=== PATIENT | male | born 1965 | race Caucasian/White ===

== ENCOUNTER → 2020-12-02 | Outpatient (REF) | LOC: M LABSMTC 11:14 | PROVIDERS: ATTEND Pediatrics | DX: Z11.52 Encounter for screening for COVID-19 (principal) ==

== ENCOUNTER 2020-12-13 12:31 | Observation (INO) | payer BC ==
[~2020-12-13] VITALS: Ht 193 cm; Wt 98.2 kg
[2020-12-13] MEDS ORDERED: VERA240C PO (12:45)
[2020-12-13] MEDS ORDERED: PROP150T PO (12:45)
[2020-12-13] MEDS ORDERED: BUPR150T12 PO (12:45)
[2020-12-13] MEDS ORDERED: BUPR300T92 PO (12:45)
[2020-12-13] MEDS ORDERED: POTA10CA32 PO (12:45)
[2020-12-13] MEDS ORDERED: QUET100T2 PO (12:45)
[2020-12-13] MEDS ORDERED: ECOT81TA5 PO (12:47)
[2020-12-13] MEDS ORDERED: OXYC7.5T3 PO (13:00)
[2020-12-13] MEDS ORDERED: MORPHINE 4 MG/ML 1ML VIAL/SYRINGE (J2270) IV ONE (13:10)
[2020-12-13] MEDS ORDERED: ONDANSETRON 4MG/2ML VIAL IV ONE ×2 (13:10→16:55)
[2020-12-13] MEDS ORDERED: NS 1,000 ML IV ONE (13:10)
[2020-12-13 13:37] LABS: BASO % 0.5 % (0.0-1.0); EOS # 0.2 10^3/uL (0.0-0.5); HEMATOCRIT 48.5 % (42.0-52.0); HEMOGLOBIN 16.1 g/dl (13.5-17.5); LYMPH # 1.2 10^3/uL (1.5-5.0); LYMPH % 15.3 % (24.0-44.0); MEAN CORPUSCULAR HEMOGLOBIN 29.8 pg (27.0-33.0); MEAN CORPUSCULAR HGB CONC 33.2 g/dl (32.0-36.5); MEAN CORPUSCULAR VOLUME 89.8 fl (80.0-96.0); MONO # 0.5 10^3/uL (0.0-0.8); MONO % 6.4 % (2.0-8.0); NEUTROPHILS # 5.9 10^3/uL (1.5-8.5); NEUTROPHILS % 74.4 % (36.0-66.0); PLATELET COUNT, AUTOMATED 215 10^3/uL (150-450)
--- OUTSIDE RECORDS SUMMARY | 2020-12-13 13:55 | CCD ---
Author Author [facility] Organization [facility] Address Unknown Phone Unavailable Support Name Relationship Address Phone KAYLA BUSTAMANTE Next Of Kin [address] [place] [address] [employer] Next Of Kin [address] [place] [address] Re-disclosure Warning The records that you are about to access may contain information from federally-assisted alcohol or drug abuse programs. If such information is present, then the following federally mandated warning applies: This information has been disclosed to you from records protected by federal confidentiality rules (42 CFR part 2). The federal rules prohibit you from making any further disclosure of this information unless further disclosure is expressly permitted by the written consent of the person to whom it pertains or as otherwise permitted by 42 CFR part 2. A general authorization for the release of medical or other information is NOT sufficient for this purpose. The Federal rules restrict any use of the information to criminally investigate or prosecute any alcohol or drug abuse patient.The records that you are about to access may contain highly sensitive health information, the redisclosure of which is protected by Article 27-F of the [facility] Public Health law. If you continue you may have access to information: Regarding HIV / AIDS; Provided by facilities licensed or operated by the [facility] Office of Mental Health; or Provided by the [facility] Office for People With Developmental Disabilities. If such information is present, then the following [facility] mandated warning applies: This information has been disclosed to you from confidential records which are protected by state law. State law prohibits you from making any further disclosure of this information without the specific written consent of the person to whom it pertains, or as otherwise permitted by law. Any unauthorized further disclosure in violation of state law may result in a fine or custodial sentence or both. A general authorization for the release of medical or other information is NOT sufficient authorization for further disc losure. Medications Medication Brand Name Start Date Product Form Dose Route Admi nistrative Instructions Pharmacy Instructions Status Indications Reaction Description Data Source(s) Potassium Chloride 10 MEQ Extended Release Oral Capsule POTA SSIUM CHLORIDE 12/05/2020 12:00:00 AM EDT capsule, extended release 90 TAKE ONE CAPSULE BY MOUTH THREE TIMES A DAY TAKE ONE CAPSULE BY MOUTH THREE TIMES A DAY SOLD: 12/05/2020 [facility] quetiapine 100 MG Oral Tablet QUETIAPINE FUMARATE 10/20/2020 12: 00:00 AM EDT tablet 120 TAKE ONE TO TWO TABLETS BY MOUTH AT BEDTIME TAKE ONE TO TWO TABLETS BY MOUTH AT BEDTIME SOLD: 10/20/2020 [facility] quetiapine 100 MG Oral Tablet QUETIAPINE FUMARATE 10/15/2020 12: 00:00 AM EDT tablet 10 TAKE ONE TO TWO TABLETS BY MOUTH AT BEDTIME TAKE ONE TO TWO TABLETS BY MOUTH AT BEDTIME SOLD: 10/15/2020 [facility] 24 HR Bupropion Hydrochloride 300 MG Extended Release Oral T ablet BUPROPION HCL 09/25/2020 12:00:00 AM EDT tablet extended release 24 hr 90 TAKE ONE TABLET BY MOUTH EVERY DAY TAKE ONE TABLET BY MOUTH EVERY DAY SOLD: 09/25/2020 [facility] 24 HR Bupropion Hydrochloride 150 MG Extended Release Oral T ablet BUPROPION HCL 09/25/2020 12:00:00 AM EDT tablet extended release 24 hr 90 TAKE ONE TABLET BY MOUTH EVERY DAY DIRECTED TAKE ONE TABLET BY MOUTH EVERY DAY DIRECTED SOLD: 09/25/2020 [facility] 240 mg 09/17/2020 12:00:00 AM EDT capsule,ext rel. pellet s 24 hr 30 TAKE ONE CAPSULE BY MOUTH EVERY DAY TAKE ONE CAPSULE BY MOUTH EVERY DAY SOLD: 09/18/2020 [facility] 240 mg 09/17/2020 12:00:00 AM EDT capsule,ext rel. pellet s 24 hr 30 TAKE ONE CAPSULE BY MOUTH EVERY DAY TAKE ONE CAPSULE BY MOUTH EVERY DAY SOLD: 11/21/2020 [facility] 150 mg 09/17/2020 12:00:00 AM EDT tablet 90 TAKE ONE TABLET BY MOUTH THREE TIMES A DAY TAKE ONE TABLET BY MOUTH THREE TIMES A DAY SOLD: 09/18/2020 [facility] 240 mg 09/17/2020 12:00:00 AM EDT capsule,ext rel. pellet s 24 hr 30 TAKE ONE CAPSULE BY MOUTH EVERY DAY TAKE ONE CAPSULE BY MOUTH EVERY DAY SOLD: 10/20/2020 [facility] 240 mg 08/12/2020 12:00:00 AM EDT tablet extended release 30 TAKE ONE TABLET BY MOUTH EVERY DAY TAKE ONE TABLET BY MOUTH EVERY DAY SOLD: 08/14/2020 [facility] quetiapine 100 MG Oral Tablet QUETIAPINE FUMARATE 08/11/2020 12: 00:00 AM EDT tablet 120 TAKE 1-2 TABLETS BY MOUTH AT BED TIME TAKE 1-2 TABLETS BY MOUTH AT BEDTIME SOLD: 08/11/2020 [facility] Insurance Providers Payer name Policy type / Coverage type Policy ID Covered alliance party ID Covered alliance party's relationship to lyles Policy Lyles Plan Information [employer] PPO [id number] SP [id number] Problems, Conditions, and Diagnoses No Information Surgeries/Procedures No Information Results ID Date Data Source [id number] 12/02/2020 09:50:00 AM EDT [facility] Name Value Range Interpretation Code Description Data Lacy rce(s) Supporting Document(s) SARS coronavirus 2 RNA [Presence] in Res piratory specimen by JORGE LUIS with probe detection NEGATIVE [facility] This lab was ordered by [facility] a nd reported by [facility]. Procedure Social History No Information
[2020-12-13 14:05] LABS: ALBUMIN 3.9 GM/DL (3.2-5.2); ALT/SGPT 38 U/L (12-78); BILIRUBIN,DIRECT 0.1 MG/DL (0.0-0.2); BILIRUBIN,TOTAL 0.4 MG/DL (0.2-1.0); BLOOD UREA NITROGEN 19 MG/DL (7-18); CALCIUM LEVEL 9.4 MG/DL (8.5-10.1); CARBON DIOXIDE LEVEL 31 MEQ/L (21-32); CHLORIDE LEVEL 106 MEQ/L (98-107); CREATININE FOR GFR 1.24 MG/DL (0.70-1.30); GLOMERULAR FILTRATION RATE > 60.0 (>56); GLUCOSE, FASTING 97 MG/DL (70-100); LIPASE 99 U/L (73-393); POTASSIUM SERUM 4.7 MEQ/L (3.5-5.1); SODIUM LEVEL 142 MEQ/L (136-145); TOTAL PROTEIN 7.2 GM/DL (6.4-8.2)
[2020-12-13] MEDS: HYDROMORPHONE HCL 0.5 MG/ 0.5 ML SYRINGE (J1170 PER 1) IV PRN ×2 (14:34→16:01)
--- NOTE | 2020-12-13 14:35 | REP ---
INDICATION: RLQ/bladder pain hx kidney stones. COMPARISON: None. TECHNIQUE: Renal stone protocol with coronal and sagittal reconstructions provided. FINDINGS: CT abdomen: The lung bases show minor dependent atelectatic change posterior lower lung zones and some curvilinear atelectasis lateral basal segment of the right lower lobe. No effusion or infiltrate. No pulmonary nodules. Heart not enlarged there is no pericardial thickening or effusion. The there is no hiatal hernia. Stomach is mildly distended with the small amount of fluid there are pill fragments in the gastric antrum and in the fundus. The liver, spleen, gallbladder, pancreas and adrenal glands are normal. The aorta has no evidence for aneurysm or dissection. There is a retroaortic left renal vein noted as an anatomic variant. No periaortic, other retroperitoneal or mesenteric pathologic sized lymphadenopathy seen. Scattered stool and gas in the colon without signs of colitis or diverticulitis. No stricture or mass. Small bowel loops unremarkable. Lung window review of all CT slices in the abdomen and pelvis shows no perforation or free air. No abdominal ascites. Kidneys show bilateral stones up to 8 mm in pyramids and the left kidney larger than right. Mild hydronephrosis with the extrarenal pelvis on the left side. A 7 0.6 mm stone in the UPJ on the left side. I do not see any other definite stones in the collecting system or left ureter which has normal caliber and course. The right side shows no hydronephrosis. There was no right hydronephrosis, extrarenal pelvis or hydroureter. The right ureter shows normal course to the bladder without stone. There is some mild perinephric stranding, left greater than right. The bone windows show degenerative disc changes throughout the lumbar spine, greatest at L1-2 with prominent anterior and smaller posterior osteophytes. There are also posterior osteophytes at L2-3 through L4-5 and all levels show disc space narrowing, sparing the L5-S1 level. No compression fractures. There is no spondylolysis or spondylolisthesis but there is facet arthritis evident. Lower thoracic spine with lesser degenerative changes and no destructive lesions. The visualized ribs are intact. CT pelvis: Sacrum, pelvis and hips show minor degenerative change without fracture or focal lesion. Distal ureters intact bladder shows no mass, wall thickening or stone. Distal left colon sigmoid shows some scattered diverticula without signs of diverticulitis or colitis. Rectum unremarkable no ventral or inguinal hernia nor pathologic sized inguinal adenopathy. There are few pericecal nodes but no cecal/pericecal inflammatory changes. No inguinal or ventral hernia is in the pelvis no inguinal or pelvic adenopathy. Calcifications in the prostate noted which is mildly enlarged. IMPRESSION: 1. Nephrolithiasis with calcifications predominantly in pyramids on both sides. There is a 7.6 mm stone in the left UPJ with extrarenal pelvis and mild hydronephrosis on the left side. Remainder of the left ureter without dilatation or stone. None of the left renal stones are in the collecting system. 2. No right hydronephrosis, extrarenal pelvis, hydroureter, renal/ureteral or bladder stone on this study. 3. Degenerative changes in the spine. 4. No inflammatory changes of the colon or small bowel loops. Cecum without wall thickening edema or Sandra cecal infiltration of fat. <Electronically signed by Ruel Kingston > 12/13/20 [id number]
[2020-12-13] MEDS ORDERED: HYDROMORPHONE HCL 0.5 MG/ 0.5 ML SYRINGE (J1170 PER 1) IV PRN ×3 (17:20→18:15)
[2020-12-13] MEDS ORDERED: MORPHINE 4 MG/ML 1ML VIAL/SYRINGE (J2270) IV PRN (17:20)
--- NOTE | 2020-12-13 17:20 | HPEPDOC ---
[facility] Medical History & Physical Date of Admission Dec 13, 2020 Date of Service: Dec 13, 2020 Attending Physician: Dominique Cooper MD History and Physical CHIEF COMPLAINT: Suprapubic pain HISTORY OF PRESENT ILLNESS: Patient is a 55-year-old male with PMH of nephrolithiasis status post lithotripsy, atrial fibrillation, chronic back pain, depression who presents to [facility] emergency room with the chief complaint of increased superpubic pain since 12/12/2020. Patient describes the pain as a dull/aching in character, 10/10 earlier today, constant, nonradiating and similar to pain his experience in the past when he has had kidney stones. The patient has associated nausea with lethargy. He denies vomiting, chest pain, shortness of breath, recent illnesses, dysuria. Due to the pain not improving he decided to come to the ER to be further evaluated. In the emergency room, his vital signs were stable. CT of the abdomen and pelvis showed 7.6 m stone in the left UPJ with extrarenal pelvis and mild hydronephrosis on the left side. There was also nephrolithiasis with calcifications predominantly impairment on both side. The patient was given 4 mg of morphine which did not help his pain. He was then given 1 mg of Dilaudid which helped decrease the pain level to 3/10. He was given 2 doses of 4 mg Zofran which did not help nausea. Urology on-call Dr. 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 The patient did not want to undergo stenting and wanted to try to control pain only for now to see how that would work. The hospital currently does not have a lithotripsy machine which is what, ideally, he would want used as intervention. Apparently the hospital only has one every 2 weeks on . Decision made between both urologists was also to not consult urology at this time. The patient was ultimately admitted under medicine service with the diagnosis of left ureterolithiasis, uncontrolled pain. REVIEW OF SYSTEMS: CONSTITUTIONAL: Denies unexplained weight gain or weight loss, fever, night sweats EYES: Denies eye drainage, eye pain, visual changes, dry/irritated eye EARS, NOSE, MOUTH, THROAT: Denies difficulty hearing, ringing in ears, mouth sores, loose teeth, sore throat, facial numbness or pain NECK: Denies swollen glands CARDIOVASCULAR: Denies irregular heartbeat, racing heart, chest pains, swelling of feet or legs, pain in legs with walking RESPIRATORY: Denies night sweats, wheezing, sputum production, oxygen at home, coughing up blood, cough lasting > 1 month GASTROINTESTINAL: Denies constipation, bloody stool, diarrhea, heartburn GENITOURINARY: Denies painful urination, bloody urine, frequent urination, urgency, leaking urine, impotence MUSCULOSKELETAL: Denies joint pain, muscle pain, leg swelling INTEGUMENTARY: Denies rash, itching, new skin lesion, change in existing skin lesion, hair loss or increase, breast changes. NEUROLOGICAL: Denies headaches, dizziness, difficulty walking, numbness or tingling PSYCHIATRIC: Denies depression, anxiety, recurrent bad thoughts, mood swings, hallucinations PAST MEDICAL HISTORY: Hx of nephrolithiasis status post lithotripsy Atrial fibrillation Chronic back pain Depression PAST SURGICAL HISTORY: Ureteroscopy Lithotripsy Appendectomy Bilateral inguinal hernia repair Umbilical hernia repair Laminectomy, discectomy 2006 FAMILY HISTORY: Motheratrial fibrillation. Alive SOCIAL HISTORY: Denies smoking history. Drinks alcohol socially. Denies drug use. Currently employed as a urologist. Primary care provider is not local and is in [place]. ALLERGIES: Please see below. HOME MEDICATIONS: Please see below. PHYSICAL EXAMINATION: VS: Stable on room air CONSTITUTIONAL: Appears in mild distress, AAO x 3 EYES: PERRLA, EOM intact HENT, MOUTH: Normocephalic, atraumatic, moist mucous membranes NECK: SUPPLE, no JVD, no lymphadenopathy, no carotid bruit CV: Regular rate and rhythm, S1S2 normal, no murmurs/rubs/gallops RESPIRATORY: Clear to auscultation bilaterally, no rales/rhonchi/wheezes GI: Suprapubic, umbilical pain on palpation of abdomen. BS positive in 4 quadrants, soft, nondistended, + guarding, no organomegaly : Deferred MUSCULOSKELETAL: Normal ROM. No cyanosis, clubbing, swelling, joint deformity, extremity edema INTEGUMENTARY: Intact, no rashes, no lesions, no erythema NEUROLOGIC: Cranial Nerves II-XII are intact, no focal deficits PSYCHIATRIC: Mood and affect are normal LABORATORY DATA: Please see below IMAGING: CT abdomen and pelvis: 1. Nephrolithiasis with calcifications predominantly in pyramids on both sides. There is a 7.6 mm stone in the left UPJ with extrarenal pelvis and mild hydronephrosis on the left side. Remainder of the left ureter without dilatation or stone. None of the left renal stones are in the collecting system. 2. No right hydronephrosis, extrarenal pelvis, hydroureter, renal/ureteral or bladder stone on this study. 3. Degenerative changes in the spine. 4. No inflammatory changes of the colon or small bowel loops. Cecum without wall thickening edema or Sandra cecal infiltration of fat. ASSESSMENT: 55-year-old male with PMH of nephrolithiasis status post lithotripsy, atrial fibrillation, chronic back pain, depression admitted under medicine service with the diagnosis of left ureterolithiasis, uncontrolled pain. PLAN: Left ureterolithiasis with mild hydronephrosis -CT above: 7.6 mm stone in the left UPJ with extrarenal pelvis and mild hydronephrosis on the left side -Patient opted not for stenting -Discussed the case with Dr. Kumari who also spoke directly with patient who is himself a urologist. Plan is currently pain management. If worsens during admission or does not improve then may require intervention. Patient also did not wish to have urology consult currently. -C/w IVFs, pain control with IV morphine and dilaudid, cont pulse ox, tele, zofran and phenergan for n/v (not controlled alone with zofran) -If worsens, consult urology officially. Atrial fibrillation -Controlled -Resume home meds Depression -Stable -C/w home medications Chronic hypokalemia -C/w home supplement Chronic back pain -Stable -on pain meds above GI px -PPI IV DVT px -Heparin sc DISPOSITION: Admitted under observation status. Consider urology consult if worsens. Plan is d/c home when medically improved. Vital Signs Vital Signs Date Time Temp Pulse Resp B/P (MAP) Pulse Ox O2 Delivery O2 Flow Rate FiO2 12/13/20 17:09 78 97 12/13/20 16:19 97.2 18 138/71 (93) Room Air Laboratory Data Labs 24H Laboratory Tests 2 12/13/20 13:07: Immature Granulocyte % (Auto) 0.4, Neutrophils (%) (Auto) 74.4H, Lymphocytes (%) (Auto) 15.3L, Monocytes (%) (Auto) 6.4, Eosinophils (%) (Auto) 3.0, Basophils (%) (Auto) 0.5, Neutrophils # (Auto) 5.9, Lymphocytes # (Auto) 1.2L, Monocytes # (Auto) 0.5, Eosinophils # (Auto) 0.2, Basophils # (Auto) 0.0, Nucleated Red Blood Cells % (auto) 0.0, Anion Gap 5L, Glomerular Filtration Rate > 60.0, Calcium Level 9.4, Total Bilirubin 0.4, Direct Bilirubin 0.1, Aspartate Amino Transf (AST/SGOT) 25, Alanine Aminotransferase (ALT/SGPT) 38, Alkaline Phosphatase 101, Total Protein 7.2, Albumin 3.9, Albumin/Globulin Ratio 1.2, Lipase 99 12/13/20 15:50: Urine Color YELLOW, Urine Appearance CLEAR, Urine pH 6.0, Urine Specific Burt 1.010, Urine Protein NEGATIVE, Urine Glucose (UA) NEGATIVE, Urine Ketones TRACEH, Urine Blood 1+H, Urine Nitrite NEGATIVE, Urine Bilirubin NEGATIVE, Urine Urobilinogen 0.2, Urine Leukocyte Esterase NEGATIVE, Urine WBC (Auto) 1, Urine RBC (Auto) 4H, Urine Hyaline Casts (Auto) 0, Urine Bacteria (Auto) NEGATIVE, Urine Squamous Epithelial Cells 0, Urine Mucus (Auto) SMALL, Urine Sperm (Auto) 12/13/20 16:43: CBC/BMP Laboratory Tests 12/13/20 13:07 Home Medications Scheduled Aspirin (Ecotrin) 81 Mg Tablet.dr, 81 MG PO DAILY for pain Bupropion Hcl (Bupropion Xl) 150 Mg Tab.er.24h, PO DAILY Potassium Chloride (Potassium Chloride) 10 Meq Capsule.er, DAILY Quetiapine Fumarate (Quetiapine Fumarate) 100 Mg Tablet, PO QHS Verapamil HCl (Verapamil ER) 240 Mg Cap24h.pel, PO DAILY Scheduled PRN Oxycodone HCl/Acetaminophen (Oxycodon-Acetaminophen 7.5-325) 1 Each Tablet, 1 TAB PO QIDP PRN for pain Miscellaneous Medications Bupropion HCl (Bupropion Xl) 300 Mg Tab.er.24h Propafenone HCl (Propafenone HCl) 150 Mg Tablet Allergies Coded Allergies: No Known Allergies (Unverified , 12/13/20) A-FIB/CHADSVASC A-FIB History Current/History of A-Fib/PAF?: Yes Current PO Anticoag Therapy: Yes Age/Risk Factor Scoring CHADSVASC: CHADSVASC Response (Comments) Value Age Risk Factor Age < 65 years old 0 Gender Risk Factor Male 0 Hx of CHF No 0 Hx of HTN No 0 Hx of Stroke/TIA/or VTE No 0 Hx of Diabetes No 0 Hx of Vascular Disease No 0 Total 0 Treatment Treatment ordered: Other Other anticoagulant ordered: heparin Dominique Cooper MD Dec 13, 2020 17:19
[2020-12-13] MEDS ORDERED: PROMETHAZINE INJ 25 MG/ML VIAL (J2550) IV PRN (17:35)
[2020-12-13] MEDS ORDERED: ONDANSETRON 4MG/2ML VIAL IV PRN (17:35)
[2020-12-13 17:41] LABS: RSV AMPLIFICATION NEGATIVE (NEGATIVE)
--- OUTSIDE RECORDS SUMMARY | 2020-12-13 17:49 | CCD ---
Author Author [facility] Organization [facility] Address Unknown Phone Unavailable Support Name Relationship Address Phone KAYLA BUSTAMANTE Next Of Kin [address] [place] [address] [employer] Next Of Kin [address] [place] [address] Re-disclosure Warning The records that you are [...] is protected by Article 27-F of the [facility] Public Health law. If you continue you may have access to information: Regarding HIV / AIDS; Provided by facilities licensed or operated by the [facility] Office of Mental Health; or Provided by the [facility] Office for People With Developmental Disabilities. If such information is present, then the following [facility] mandated warning applies: This information [...] law may result in a fine or penitentiary sentence or both. A general authorization for [...] type / Coverage type Policy ID Covered libertarian ID Covered libertarian's relationship to lyles Policy Lyles Plan Information [employer] PPO 306 [id number] SP [id number] Problems, Conditions, and Diagnoses No Information Surgeries/Procedures No Information Results ID Date Data Source [id number] 12/02/2020 09:50:00 AM EDT [facility] Name Value Range Interpretation Code Description Data Lacy rce(s) Supporting Document(s) SARS coronavirus 2 RNA [Presence] in Res piratory specimen by JORGE LUIS with probe detection NEGATIVE [facility] This lab was ordered by [facility] a nd reported by [facility]. Procedure Social History No Information
[2020-12-13] MEDS ORDERED: HOME MED LIST COMPLETE! XX SCH (18:15)
[2020-12-13 18:30] VITALS: BP 138/88
[2020-12-13] MEDS: NS 1,000 ML IV SCH ×2 (18:34→20:13)
[2020-12-13] MEDS: PANTOPRAZOLE 40MG VIAL (C9113 PER 1) IV SCH (18:34)
[2020-12-13] MEDS ORDERED: PROPAFENONE 150 MG TAB PO PRN (18:45)
[2020-12-13 19:06] VITALS: O2SAT 91
[2020-12-13 20:11] LABS: INR 0.98; PROTHROMBIN TIME 13.4 SECONDS (12.7-14.5)
[2020-12-13 20:12] LABS: PARTIAL THROMBOPLASTIN TIME 27.8 SECONDS (25.9-37.0)
[2020-12-13] MEDS: HEPARIN SOD (PORCINE) 5000UNITS/ML 1ML VIAL/SYRINGE SQ SCH (20:13)
[2020-12-13] MEDS: POTASSIUM CHLORIDE 10MEQ SR TABLET PO SCH (20:13)
[2020-12-13] MEDS ORDERED: QUEtiapine FUMARATE 100 MG TAB PO SCH (21:00)
[2020-12-13 22:00] VITALS: BP 127/79
[2020-12-14 06:00] VITALS: BP 125/77
[2020-12-14 06:08] LABS: HEMATOCRIT 40.9 % (42.0-52.0); MEAN CORPUSCULAR HEMOGLOBIN 29.6 pg (27.0-33.0); MEAN CORPUSCULAR HGB CONC 32.5 g/dl (32.0-36.5); MEAN CORPUSCULAR VOLUME 91.1 fl (80.0-96.0); PLATELET COUNT, AUTOMATED 171 10^3/uL (150-450); RED BLOOD COUNT 4.49 10^6/uL (4.30-6.10); WHITE BLOOD COUNT 6.4 10^3/uL (4.0-10.0)
[2020-12-14 06:20] LABS: BLOOD UREA NITROGEN 17 MG/DL (7-18); CARBON DIOXIDE LEVEL 28 MEQ/L (21-32); CHLORIDE LEVEL 111 MEQ/L (98-107); CREATININE FOR GFR 1.24 MG/DL (0.70-1.30); GLOMERULAR FILTRATION RATE > 60.0 (>56); GLUCOSE, FASTING 89 MG/DL (70-100); POTASSIUM SERUM 4.1 MEQ/L (3.5-5.1); SODIUM LEVEL 142 MEQ/L (136-145)
[2020-12-14 06:26] LABS: HEMOGLOBIN 13.3 g/dl (13.5-17.5)
[2020-12-14] MEDS ORDERED: buPROPion **XL** TABLET 150MG (WELLBUTRIN XL) PO SCH ×2 (09:00)
[2020-12-14] MEDS: HEPARIN SOD (PORCINE) 5000UNITS/ML 1ML VIAL/SYRINGE SQ SCH (09:00)
[2020-12-14] MEDS ORDERED: VERAPAMIL 120 MG SR TAB PO SCH (09:00)
[2020-12-14] MEDS: PANTOPRAZOLE 40MG VIAL (C9113 PER 1) IV SCH (09:00)
[2020-12-14] MEDS ORDERED: ASPIRIN 81MG ENTERIC TABLET PO SCH (09:00)
[2020-12-14 09:53] VITALS: O2SAT 95
[2020-12-14] MEDS: POTASSIUM CHLORIDE 10MEQ SR TABLET PO SCH (09:53)
[2020-12-14 09:55] VITALS: BP 121/78
[2020-12-14] MEDS ORDERED: HYDR-3713 PO (10:39)
--- NOTE | 2020-12-14 20:06 | DS.PDOC ---
Discharge Summary General Date of Admission Dec 13, 2020 at 12:32 Date of Discharge 12/14/20 Attending Physician: Dominique Cooper MD Discharge Summary PROCEDURES PERFORMED DURING STAY: None ADMITTING DIAGNOSES: Left ureterolithiasis with mild hydronephrosis Atrial fibrillation Depression Chronic hypokalemia Chronic back pain DISCHARGE DIAGNOSES: Left ureterolithiasis with mild hydronephrosis Atrial fibrillation Depression Chronic hypokalemia Chronic back pain COMPLICATIONS/CHIEF COMPLAINT: Ureterolithiasis. HISTORY OF PRESENT ILLNESS: Patient is a 55-year-old male with PMH of nephrolithiasis status post lithotripsy, atrial fibrillation, chronic back pain, depression who presents to [facility] emergency room with the chief complaint of increased superpubic pain s marco a 12/12/2020. Patient describes the pain as a dull/aching in character, 10/10 earlier today, constant, nonradiating and similar to pain his experience in the past when he has had kidney stones. The patient has associated nausea with lethargy. He denies vomiting, chest pain, shortness of breath, recent illnesses, dysuria. Due to the pain not improving he decided to come to the ER to be further evaluated. HOSPITAL COURSE: In the emergency room, his vital signs were stable. CT of the abdomen and pelvis showed 7.6 m stone in the left UPJ with extrarenal pelvis and mild hydronephrosis on the left side. There was also nephrolithiasis with calcifications predominantly impairment on both side. The patient was given 4 mg of morphine which did not help his pain. He was then given 1 mg of Dilaudid which helped decrease the pain level to 3/10. He was given 2 doses of 4 mg Zofran which did not help nausea. Urology on-call Dr. 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 The patient did not want to undergo stenting and wanted to try to control pain only for now to see how that would work. The hospital currently does not have a lithotripsy machine which is what, ideally, he would want used as intervention. Apparently the hospital only has one every 2 weeks on . Decision made between both urologists was also to not consult urology at this time. The patient was ultimately admitted under medicine service with the diagnosis of left uret erolithiasis, uncontrolled pain. While admitted, the following issues were addressed or monitored: Left ureterolithiasis with mild hydronephrosis -CT above: 7.6 mm stone in the left UPJ with extrarenal pelvis and mild hydronephrosis on the left side -Patient opted not for stenting -Discussed the case with Dr. Kumari who also spoke directly with patient who is himself a urologist. Plan was pain management and he required morphine, dilaudid inpatient. -Did not require much overnight -By AM pain much improved -D/lexy home with additional pain med, encouragement to hydrate and f/u with uro logy. Atrial fibrillation -Controlled -c/w home meds Depression -Stable -C/w home medications Chronic hypokalemia -C/w home supplement Chronic back pain -Stable -C/w home meds DISCHARGE MEDICATIONS: Please see below. ALLERGIES: Please see below. PHYSICAL EXAMINATION: VS: Stable on room air CONSTITUTIONAL: NAD, AAO x 3 EYES: PERRLA, EOM intact HENT, MOUTH: Normocephalic, atraumatic, moist mucous membranes NECK: SUPPLE, no JVD, no lymphadenopathy, no carotid bruit CV: Regular rate and rhythm, S1S2 normal, no murmurs/rubs/gallops RESPIRATORY: Clear to auscultation bilaterally, no rales/rhonchi/wheezes GI: nontender. BS positive in 4 quadrants, soft, nondistended, no guarding, no organomegaly : Deferred MUSCULOSKELETAL: Normal ROM. No cyanosis, clubbing, swelling, joint deformity, extremity edema INTEGUMENTARY: Intact, no rashes, no lesions, no erythema NEUROLOGIC: Cranial Nerves II-XII are intact, no focal deficits PSYCHIATRIC: Mood and affect are normal LABORATORY DATA: Please see below. IMAGING: CT abdomen and pelvis: 1. Nephrolithiasis with calcifications predominantly in pyramids on both sides. There is a 7.6 mm stone in the left UPJ with extrarenal pelvis and mild hydronephrosis on the left side. Remainder of the left ureter without dilatation or stone. None of the left renal stones are in the collecting system. 2. No right hydronephrosis, extrarenal pelvis, hydroureter, renal/ureteral or bladder stone on this study. 3. Degenerative changes in the spine. 4. No inflammatory changes of the colon or small bowel loops. Cecum without wall thickening edema or Sandra cecal infiltration of fat. PROGNOSIS: Good ACTIVITY: As tolerated DIET: Regular DISPOSITION: 01 Home, Self-Care. DISCHARGE INSTRUCTIONS: 1. Please follow up with urology as oupatient within the next 1 week after discharge. 2. If you should have any increased suprapubic pain, flank pain, difficulty urinating please see a medical professional. ITEMS TO FOLLOWUP ON ON OUTPATIENT: None DISCHARGE CONDITION: Stable TIME SPENT ON DISCHARGE: 35 minutes. Vital Signs/I&Os Vital Signs Date Time Temp Pulse Resp B/P (MAP) Pulse Ox O2 Delivery O2 Flow Rate FiO2 12/14/20 09:55 79 121/78 12/14/20 09:53 95 Room Air 12/14/20 06:00 97.7 17 12/13/20 19:16 2.0 I&O- Last 24 Hours up to 6 AM 12/14/20 06:00 Intake Total 1730 ml Output Total 700 ml Balance 1030 ml Laboratory Data Labs 24H Laboratory Tests 2 12/14/20 05:40: Nucleated Red Blood Cells % (auto) 0.0, Anion Gap 3L, Glomerular Filtration Rate > 60.0, Calcium Level 8.0L CBC/BMP Laboratory Tests 12/14/20 05:40 Discharge Medications Scheduled Aspirin (Ecotrin) 81 Mg Tablet.dr, 81 MG PO DAILY, (Reported) Bupropion HCl (Bupropion Xl) 300 Mg Tab.er.24h, 300 MG PO DAILY, (Reported) WITH 150MG. TOTAL OF 450 MG Bupropion Hcl (Bupropion Xl) 150 Mg Tab.er.24h, 150 MG PO DAILY, (Reported) WITH 300MG TOTAL OF 450MG Potassium Chloride (Potassium Chloride) 10 Meq Capsule.er, 10 MEQ PO TID, (Reported) Quetiapine Fumarate (Quetiapine Fumarate) 100 Mg Tablet, 100 MG PO QHS, (Reported) Verapamil HCl (Verapamil ER) 240 Mg Cap24h.pel, 240 MG PO DAILY, (Reported) Scheduled PRN Hydrocodone/Acetaminophen (Hydrocodone-Acetamin 5-325 mg) 1 Each Tablet, 1 TAB PO Q6HP PRN for PAIN MDD 4 Propafenone HCl (Propafenone HCl) 150 Mg Tablet, 150 MG PO TID PRN for A-FIB, (Reported) Allergies Coded Allergies: No Known Allergies (Unverified , 12/13/20) Dominique Cooper MD Dec 14, 2020 20:06
== END 2020-12-14 11:36 | disposition home or self-care (01) ==
LOC: M ED 12:31 → M ED INP 12:32 → ENRESERV 17:57 → M MSPAV 18:25
PROVIDERS: ADMIT Internal Medicine; ATTEND Internal Medicine
DX: N13.5 Crossing vessel and stricture of ureter without hydronephrosis (principal); I48.91 Unspecified atrial fibrillation; F32.9 Major depressive disorder, single episode, unspecified; E87.6 Hypokalemia; G89.29 Other chronic pain; Z79.82 Long term (current) use of aspirin; Z79.899 Other long term (current) drug therapy
CPT/HCPCS: 36415; 74176; 80048; 80076; 81001; 83690; 85025; 85027; 85610; 85730; 87631; 93041; 96361; 96374; 96375; 96376; 99285; C9113; J1170; J1644; J2270; J2405

== ENCOUNTER → 2020-12-23 | Outpatient (CLI) | payer BC ==
[~2020-12-23] MED LIST: BUPR150T12 PO; BUPR300T92 PO; ECOT81TA5 PO; HYDR-3713 PO; OXYB5TAB10 PO; OXYC7.5T3 PO; POTA10CA32 PO; PROP150T PO; PYRI1TAB5 PO; QUET100T2 PO; VERA240C PO
== END ==
LOC: M LABSMTC 11:24
PROVIDERS: ATTEND Anesthesiology
DX: Z01.812 Encounter for preprocedural laboratory examination (principal); Z20.822 Contact with and (suspected) exposure to COVID-19

== ENCOUNTER 2020-12-24 08:01 | Day surgery (SDC) | payer BC ==
[~2020-12-24] VITALS: Ht 193 cm; Wt 104.3 kg
[~2020-12-24 08:01] MED LIST changes: +LR 1,000 ML IV ONE; -OXYB5TAB10 PO; -PYRI1TAB5 PO; +ceFAZolin SOD 2 GM in IV 1 EA IV ONE
[2020-12-24] MEDS ORDERED: CONRAY-60 60% 50ML VIAL (Q9961) As Ordered ONE (09:09)
[2020-12-24] MEDS ORDERED: LIDOCAINE 2% 100MG/5ML SDV (FOR ANES.) As Ordered ONE (09:53)
[2020-12-24] MEDS ORDERED: fentaNYL 250 MCG/5 ML INJECTION (J3010) As Ordered ONE (09:53)
[2020-12-24] MEDS ORDERED: ONDANSETRON 4MG/2ML VIAL As Ordered ONE (09:53)
[2020-12-24] MEDS ORDERED: MIDAZOLAM INJ 2MG/2ML VIAL (J2250 PER 1MG) As Ordered ONE (09:53)
[2020-12-24] MEDS ORDERED: PHENYLephrine 500MCG 5ML (100MCG/ML) SYRINGE As Ordered ONE (09:53)
[2020-12-24] MEDS ORDERED: dexameTHASONE 4 MG/ML 1ML VIAL (J1100 PER 1MG) As Ordered ONE (09:53)
[2020-12-24] MEDS ORDERED: ePHEDrine SULFATE 25 MG/5 ML(5MG/ML) SYRINGE As Ordered ONE (09:53)
[2020-12-24] MEDS ORDERED: propofoL 200 MG/20 ML VIAL As Ordered ONE (09:53)
--- NOTE | 2020-12-24 12:10 | REP ---
INDICATION: BILATERAL STENT PLACEMENT. COMPARISON: None. TECHNIQUE: Three spot views of the abdomen and pelvis were obtained during bilateral a double pigtail stent placement. 31 seconds of fluoroscopy time was provided Dr. Kane Galvan for the exam. FINDINGS: Small amount of radiographic contrast material is seen opacifying each renal collecting system. Double pigtail stents are seen bilaterally the proximal portion of each is in the region of the renal pelvis and the distal portion of each is in the urinary bladder. IMPRESSION: As above. <Electronically signed by Ronal Dunbar > 12/24/20 [id number]
[2020-12-24] MEDS ORDERED: OXYB5TAB10 PO (12:26)
[2020-12-24] MEDS ORDERED: PYRI1TAB5 PO (12:26)
[2020-12-24] MEDS ORDERED: LR 1,000 ML IV SCH (12:40)
[2020-12-24] MEDS ORDERED: ONDANSETRON 4MG/2ML VIAL IV PRN (12:40)
[2020-12-24] MEDS ORDERED: PERCOCET 5MG/325MG TAB PO PRN ×2 (12:40)
[2020-12-24] MEDS ORDERED: oxyBUTYnin 5 MG TAB PO PRN (12:45)
--- NOTE | 2020-12-24 13:01 | RO ---
OPERATIVE NOTE DATE OF OPERATION: 12/24/2020 PREOPERATIVE DIAGNOSIS: Bilateral kidney stones. POSTOPERATIVE DIAGNOSIS: Bilateral kidney stones. PROCEDURE: Cystoscopy, bilateral ureteroscopy with laser lithotripsy and basket extraction of stones, bilateral retrograde pyelograms with intraoperative interpretation of images, bilateral ureteral stent placement. SURGEON: Kane Galvan MD ORTHOTIC FINISH GRINDING TECHNICIAN: None. ANESTHESIA: General. OPERATIVE INDICATIONS: This is a 55-year-old male who was recently seen on CT scan to have bilateral kidney stones with an obstructing 8-9 mm left ureteropelvic junction stone as well as stones in each kidney measuring up to 6-7 mm in size. He was brought to the operating room today for treatment. DESCRIPTION OF PROCEDURE: The patient was brought to the operating room and general anesthesia was induced. Prophylactic antibiotics were infused. He was placed in the dorsal lithotomy position, prepped, and draped in the usual sterile fashion. A rigid cystoscope was inserted into the urethral meatus and advanced into the bladder. A guidewire was advanced up the left collecting system. A ureteral access sheath was advanced up the left collecting system. I went up the access sheath with a flexible ureteroscope and at the level of the ureteropelvic junction an approximately 8-9 mm stone was seen. The stone was pushed into the kidney. The stone as well as approximately 7-8 additional stones were then broken down into smaller fragments using a 272 micron laser fiber. Of note, some of these stones were embedded into renal papilla. Once the stones were adequately fragmented all the pieces were removed using a basket. Once done only very tiny stone debris remained in the left kidney. Once this was done the ureteroscope was removed along with access sheath and no additional stones were seen inside the ureter. I then advanced a guidewire up the right collecting system. An access sheath was advanced up the right collecting system. I went up the access sheath with flexible ureteroscope and examined the right kidney thoroughly. There were several, at least 4-5 stones inside the right kidney with the largest measuring about 8-9 mm in the lower pole calyx. All the stones were broken down into smaller pieces using the laser and then all the fragments were removed using a basket. Once done only very tiny stone debris remained. A retrograde pyelogram was performed and was notable for moderate right hydronephrosis with no extravasation. I withdrew the ureteroscope along with the access sheath and no additional stones were seen inside the ureter. I then utilized the guidewire to advance a 6-Finnish x 22-32 cm JJ ureteral stent up the right collecting system. The wire was removed and there were adequate curls of the stent in the right renal pelvis and in the bladder. Of note the string was left on the end of the stent. I then advanced a 5-Finnish open-ended ureteral catheter back up the left collecting system and shot a retrograde pyelogram. It was notable for moderate left hydronephrosis with no extravasation. I advanced guidewire back up the left collecting system and removed the ureteral catheter. I utilized a guidewire to advance 6-Finnish x 22-32 cm JJ ureteral stent up the left collecting system. The wire was removed and there were adequate curls of the stent in the renal pelvis and the bladder. The string was also left on the stent for the left side. The bladder was emptied of all fluids and the cystoscope was removed. I then secured the strings of both stents to the dorsal aspect of phallus using Mastisol and Steri-Strips. This marked the conclusion of the procedure. The patient was taken out of the dorsal lithotomy position, awakened from anesthesia, and transported to the recovery room in stable condition. ESTIMATED BLOOD LOSS: 5 mL. COMPLICATIONS: None. SPECIMEN: Kidney stone fragments. PLAN: The patient will keep the stents in for approximately a week or two and then we will remove them using the string. He will follow up in the office for postoperative visit. GABINO
[2020-12-24] MEDS: fentaNYL 100 MCG/2 ML INJECTION (J3010) IV PRN ×4 (13:40→14:01)
[2020-12-24] MEDS ORDERED: ACETAMINOPHEN *IV* 1,000 MG in IV 1 EA IV ONE (13:50)
[2020-12-24 15:55] VITALS: BP 142/67
[2020-12-24] MEDS ORDERED: KETOROLAC 30 MG/ML 1ML VIAL IM SCH (17:05)
[2020-12-29 23:07] LABS: CA Oxalate Dihy 30 % (.); Ca Ox Monohydrate 70 % (.); Size 6x4 mm (.)
== END 2020-12-24 17:10 | disposition home or self-care (01) ==
LOC: M SDC 08:01
PROVIDERS: ATTEND Urology
DX: N20.0 Calculus of kidney (principal); I48.91 Unspecified atrial fibrillation; F32.9 Major depressive disorder, single episode, unspecified; Z79.899 Other long term (current) drug therapy
CPT/HCPCS: 52356; 74420; 82365; 88300; C1769; C1894; C2617; J0131; J0690; J1100; J1885; J2250; J2370; J2405; J3010; Q9961

== ENCOUNTER → 2023-01-02 | Outpatient (REF) | payer BC ==
[~2023-01-02] MED LIST changes: -LR 1,000 ML IV ONE; +OXYB5TAB11 PO; -POTA10CA32 PO; +POTA10CA60 PO; +PYRI1TAB5 PO; -ceFAZolin SOD 2 GM in IV 1 EA IV ONE
[2023-01-02 18:53] LABS: C REACTIVE PROTEIN QUANTITATIV < 0.40 MG/DL (<1.0)
[2023-01-02 19:34] LABS: RHEUMATOID FACTOR QUANT < 3.5 IU/ML (<14)
[2023-01-02 19:37] LABS: URIC ACID 5.1 MG/DL (3.7-9.2)
[2023-01-04 20:07] LABS: CYCLIC CITRULLINATED PEPTIDE 9 units (0-19)
== END ==
LOC: M LAB REF 16:20
PROVIDERS: ATTEND Internal Medicine
DX: M13.80 Other specified arthritis, unspecified site (principal)

== ENCOUNTER → 2023-05-17 | Outpatient (CLI) | payer BC ==
[~2023-05-17] MED LIST changes: -OXYB5TAB11 PO; +OXYB5TAB14 PO
== END ==
LOC: M RAD 16:49
PROVIDERS: ATTEND Internal Medicine
DX: M25.572 Pain in left ankle and joints of left foot (principal); M79.89 Other specified soft tissue disorders; M19.072 Primary osteoarthritis, left ankle and foot; M25.472 Effusion, left ankle

== ENCOUNTER → 2023-05-17 | Outpatient (CLI) | payer BC | LOC: M RAD 16:50 | PROVIDERS: ATTEND Physician Assistant | DX: N23 Unspecified renal colic (principal) ==

== ENCOUNTER → 2023-07-31 | Outpatient (CLI) | payer BC ==
[~2023-07-31] MED LIST changes: +BUPR-597 PO; -BUPR300T92 PO; -POTA10CA60 PO; +POTA10CA70 PO
== END ==
LOC: M RAD 14:11
PROVIDERS: ATTEND Physician Assistant
DX: N23 Unspecified renal colic (principal)

== ENCOUNTER → 2023-11-20 | Outpatient (REF) | LOC: M EMP 07:27 | PROVIDERS: ATTEND Family Medicine | DX: Z11.52 Encounter for screening for COVID-19 (principal) ==

== ENCOUNTER → 2024-11-13 | Outpatient (CLI) | payer BC ==
[~2024-11-13] MED LIST changes: -BUPR-597 PO; +BUPR-766 PO; -PROP150T PO; +PROP1TAB30 PO
[2024-11-13 12:37] LABS: BASO # 0.0 10^3/uL (0.0-0.2); BASO % 0.8 % (0.0-1.0); EOS # 0.3 10^3/uL (0.0-0.5); EOS % 5.3 % (0.0-3.0); LYMPH # 1.6 10^3/uL (1.5-5.0); LYMPH % 31.3 % (24.0-44.0); MONO # 0.4 10^3/uL (0.0-0.8); MONO % 7.9 % (2.0-8.0); NEUTROPHILS # 2.8 10^3/uL (1.5-8.5); NEUTROPHILS % 54.5 % (36.0-66.0); PLATELET COUNT, AUTOMATED 213 10^3/uL (150-450)
[2024-11-13 12:44] LABS: ALT/SGPT 32.0 U/L (7.0-40); AST/SGOT 23.0 U/L (<34); CALCIUM LEVEL 8.8 MG/DL (8.5-10.1); CARBON DIOXIDE LEVEL 28.0 MMOL/L (20-31); CHLORIDE LEVEL 107.0 MMOL/L (98-107); CHOLESTEROL LEVEL 134.0 MG/DL (<200); CHOLESTEROL RISK RATIO 3.46 (<5); CREATININE FOR GFR 1.01 MG/DL (0.70-1.30); GLOMERULAR FILTRATION RATE 86.2 (>56); LDL CHOLESTEROL 73.9 MG/DL (<100); MAGNESIUM LEVEL 2.0 MG/DL (1.8-2.4); NON-HDL-C 95.3 MG/DL; POTASSIUM SERUM 4.6 MMOL/L (3.5-5.1); PSA SCREENING 0.9 NG/ML (< 4.00); SODIUM LEVEL 142.0 MMOL/L (136-145); TRIGLYCERIDES LEVEL 107.0 MG/DL (<150)
[2024-11-13 12:46] LABS: TESTOSTERONE 636.0 NG/DL (241-827)
[2024-11-13 13:59] LABS: BASO # 0.0 10^3/uL (0.0-0.2); BASO % 0.6 % (0.0-1.0); EOS # 0.3 10^3/uL (0.0-0.5); EOS % 5.0 % (0.0-3.0); LYMPH # 1.6 10^3/uL (1.5-5.0); LYMPH % 31.2 % (24.0-44.0); MONO # 0.4 10^3/uL (0.0-0.8); MONO % 7.4 % (2.0-8.0); NEUTROPHILS # 2.8 10^3/uL (1.5-8.5); NEUTROPHILS % 55.4 % (36.0-66.0); PLATELET COUNT, AUTOMATED 220 10^3/uL (150-450)
[2024-11-13 14:31] LABS: ALT/SGPT 33.0 U/L (7.0-40); AST/SGOT 22.0 U/L (<34); CALCIUM LEVEL 8.8 MG/DL (8.5-10.1); CARBON DIOXIDE LEVEL 28.0 MMOL/L (20-31); CHLORIDE LEVEL 106.0 MMOL/L (98-107); CHOLESTEROL LEVEL 136.0 MG/DL (<200); CHOLESTEROL RISK RATIO 3.56 (<5); CREATININE FOR GFR 1.02 MG/DL (0.70-1.30); GLOMERULAR FILTRATION RATE 85.2 (>56); LDL CHOLESTEROL 76.2 MG/DL (<100); MAGNESIUM LEVEL 2.0 MG/DL (1.8-2.4); NON-HDL-C 97.8 MG/DL; POTASSIUM SERUM 4.6 MMOL/L (3.5-5.1); PSA SCREENING 0.86 NG/ML (< 4.00); SODIUM LEVEL 143.0 MMOL/L (136-145); TRIGLYCERIDES LEVEL 108.0 MG/DL (<150)
== END ==
LOC: M PLALAB 07:11
PROVIDERS: ATTEND Internal Medicine
DX: Z00.00 Encounter for general adult medical examination without abnormal findings (principal); R53.83 Other fatigue; I48.0 Paroxysmal atrial fibrillation; M54.50 Low back pain, unspecified; Z13.220 Encounter for screening for lipoid disorders; Z12.5 Encounter for screening for malignant neoplasm of prostate
CPT/HCPCS: 36415; 80053; 80061; 83735; 84403; 85025; G0103

== ENCOUNTER → 2025-01-17 | Outpatient (CLI) | payer BC | LOC: M SOG 12:50 | PROVIDERS: ATTEND Orthopaedic Surgery Hand Surgery | DX: M25.572 Pain in left ankle and joints of left foot (principal); Z53.9 Procedure and treatment not carried out, unspecified reason ==